=== PATIENT | female | born 1930 | race Caucasian/White ===

== ENCOUNTER 2018-07-09 17:22 | Emergency (ER) | payer MEDICARE | END 2018-07-09 19:01 | disposition home or self-care (01) | LOC: M ED 17:22 | DX: S60.221A Contusion of right hand, initial encounter (principal); S60.011A Contusion of right thumb without damage to nail, initial encounter; W07.XXXA Fall from chair, initial encounter; Y92.096 Garden or yard of other non-institutional residence as the place of occurrence of the external cause; M19.041 Primary osteoarthritis, right hand; M81.0 Age-related osteoporosis without current pathological fracture; Z79.899 Other long term (current) drug therapy | CPT/HCPCS: 73140 ==